=== PATIENT | female | born 1955 | race Caucasian/White ===

== ENCOUNTER 2018-01-14 18:33 | Inpatient (IN) | payer OTHER ==
[~2018-01-14] VITALS: Ht 162.6 cm; Wt 67.2 kg
[2018-01-14] MEDS ORDERED: NICARDIPINE 20MG/200ML PREMIX 200 ML ONE (19:03)
--- NOTE | 2018-01-14 19:03 | Diagnostic Imaging Report ---
EXAMINATION: Head CT HISTORY: Heart speech, right-sided weakness, evaluate for acute stroke. COMPARISON: None. TECHNIQUE: Multidetector axial images were obtained without contrast from the foramen magnum to the vertex . The images were reconstructed using brain and bone algorithms. Thin section brain images were reformatted into coronal and sagittal planes. Intravenous contrast: None. Image quality: Motion/streaking artifact limits the evaluation of the skull base and posterior cranial fossa. Dose modulation, iterative reconstruction, and/or weight based adjustment of the mA/kV was utilized to reduce the radiation dose to as low as reasonably achievable. FINDINGS: Parenchyma: 1. Mildly confluent periventricular white matter hypodensities, most likely nonspecific chronic microvascular ischemic changes. Age indeterminate likely chronic small lacunar infarct in the right frontal deep white matter. 2. No mass or hemorrhage. No CT evidence of acute territorial vascular insult. Extra-axial spaces:No abnormal density. No extra-axial fluid collections Brain volume: Normal for age. Ventricles: No hydrocephalus or displacement. Arteries: No density suggestive of thrombus. Dural sinuses: No abnormal density. Extra-axial spaces: No abnormal density. Foramen magnum: No mass, Chiari malformation, or basilar invagination. Sella: No obvious mass. Paranasal/mastoid sinuses: Imaged portions unremarkable. Skull/Scalp: No lytic or blastic lesions. No fractures. IMPRESSION: 1. No acute intracranial hemorrhage or cortical infarct. 2. Mild chronic microvascular ischemic changes. Signed by: Dr. Tiara Norris M.D. on 01/14/2018 7:00 PM
[2018-01-14 19:04] LABS: BASOPHILS # (AUTO) 0.1 (0.0-0.1); BASOPHILS % 0.5 % (0.0-1.0); EOSINOPHILS # (AUTO) 0.2 (0.0-0.4); EOSINOPHILS % 1.5 % (0.0-6.0); HEMATOCRIT 47.5 % (34.2-44.1); HEMOGLOBIN 16.7 g/dL (12.0-16.0); LYMPHOCYTES # (AUTO) 3.7 (1.0-3.2); LYMPHOCYTES % 35.1 % (18.0-39.1); MEAN CORPUSCULAR HGB CONC 35.2 g/dL (31-35); MEAN CORPUSCULAR VOLUME 85.3 fL (81-99); MONOCYTES # (AUTO) 0.7 (0.2-0.8); MONOCYTES % 6.1 % (4.4-11.3); NEUTROPHILS % 56.4 % (38.7-80.0); PLATELET COUNT 233 x10e3/uL (140-360); RED BLOOD COUNT 5.57 x10e6/uL (3.6-5.1); RED CELL DISTRIBUTION WIDTH 12.8 % (11.7-14.4)
[2018-01-14] MEDS: NICARDIPINE HCL SOLN 20 MG in SODIUM CHLORIDE 0.9% 250ML 200 ML IV PRN (19:05)
[2018-01-14 19:16] LABS: INR 0.83; PROTHROMBIN TIME 12.2 seconds (11.9-14.5)
[2018-01-14 19:17] LABS: PARTIAL THROMBOPLASTIN TIME 26.9 seconds (23.8-35.5)
[2018-01-14 19:26] LABS: ALANINE AMINOTRANSFERASE 13 IU/L (0-55); ALBUMIN 4.3 g/dL (3.5-5.0); ALBUMIN/GLOBULIN RATIO 1.3 (0.8-2.0); ALKALINE PHOSPHATASE 114 IU/L (40-150); ANION GAP 16.4 mmol/L (8-16); BLOOD UREA NITROGEN 9 mg/dL (7-26); BUN/CREATININE RATIO 12 (6-25); CALCIUM 10.2 mg/dL (8.4-10.2); CARBON DIOXIDE 23 mmol/L (22-29); CHLORIDE 100 mmol/L (98-107); CREATINE KINASE 59 IU/L (29-168); CREATININE, SERUM 0.77 mg/dL (0.57-1.11); EST GLOMERULAR FILTRATION RATE > 60 ML/MIN (60-); GLUCOSE 247 mg/dL (74-118); POTASSIUM 3.4 mmol/L (3.5-5.1); SODIUM 136 mmol/L (136-145)
[2018-01-14 20:06] LABS: BILIRUBIN,URINE NEGATIVE (NEGATIVE); CLARITY,URINE CLOUDY (CLEAR); COLOR,URINE YELLOW (YELLOW); KETONES,URINE NEGATIVE (NEGATIVE); LEUKOCYTE ESTERASE ,URINE NEGATIVE (NEGATIVE); NITRITE,URINE NEGATIVE (NEGATIVE); PROTEIN,URINE DIPSTICK TRACE (NEGATIVE); URINE UROBILINOGEN 0.2 mg/dL (0.2 - 1)
[2018-01-14] MEDS ORDERED: ASPIRIN 81 MG CHEW TAB PO STA (20:20)
--- NOTE | 2018-01-14 20:23 | Diagnostic Imaging Report ---
A single frontal view of the chest. HISTORY: Stroke COMPARISON: None available. DISCUSSION: Portable technique, limits sensitivity of the exam. Overlying monitoring leads. Tubes/Lines: None Lungs and pleura: The lungs appear well inflated. No evidence of a consolidative pneumonia or pulmonary alveolar edema. No definite pleural effusion or pneumothorax is identified. Heart and mediastinum: The cardiomediastinal silhouette appears unremarkable. Bones: No acute osseous lesion is identified, given this limited exam. IMPRESSION: No acute radiographic abnormality. Signed by: Dr. Jp Aguila D.O., M.M.M. on 01/14/2018 8:20 PM
[2018-01-14 20:26] LABS: RBC,URINE 0-5 /HPF (0-5)
[2018-01-14 20:27] LABS: BACTERIA,URINE MANY /HPF; EPITHELIAL CELLS,URINE MODERATE /LPF; HYALINE CASTS 0-1 (0-1)
[2018-01-14] MEDS ORDERED: ADVIL200 MG PO (20:51)
[2018-01-14] MEDS ORDERED: KCL 20MEQ/.9 SOD CHL 1,000 ML IV ONE (21:00)
[2018-01-14] MEDS ORDERED: ONDANSETRON HCL INJ 2 MG/ML VIAL IV PRN (21:00)
[2018-01-14] MEDS ORDERED: DEXTROSE 50% SYRINGE 50 ML IV PRN (21:00)
--- OUTSIDE RECORDS SUMMARY | 2018-01-14 21:03 | XMS REPORT ---
Author Author [facility] Address Unknown Phone Unavailable Care Team Providers Care Product Support Specialist Name Role Phone [place] MUNOZ Unavailable Unavailable Problems This patient has no known problems. Allergies, Adverse Reactions, Alerts This patient has no known allergies or adverse reactions. Medications This patient has no known medications. Results Test Description Test Time Test Comments Text Results Atomic Results Result Comments CHEST SINGLE (PORTABLE) 2018-01-14 20:20:00 [facility] [address] [place] [address] Patient Name: CYRUS WORKMAN MR #: [id number] : 1955 Age/Sex: 62/F Req #: [id number] Adm Physician: Ordered by: GENE BURDEN MD Report #: [id number] Location: ER Room/Bed: Procedure: [id number] DX/CHEST SINGLE (PORTABLE) Exam Date: 01/14/18 Exam Time: 2004 REPORT STATUS: Signed A single frontal view of the chest. HISTORY: Stroke COMPARISON: None available. DISCUSSION: Portable technique, limits sensitivity of the exam. Overlying monitoring leads. Tubes/Lines: None Lungs and pleura: The lungs appear well inflated. No evidence of a consolidative pneumonia or pulmonary alveolar edema. No definite pleural effusion or pneumothorax is identified. Heart and mediastinum: The cardiomediastinal silhouette appears unremarkable. Bones: No acute osseous lesion is identified, given this limited exam. IMPRESSION: No acute radiographic abnormality. Signed by: Dr. Sunshine Aguila D.O., M.M.M. on 01/14/2018 8:20 PM Dictated By: SUNSHINE AGUILA DO 19 Transcribed By: AJ on 01/14/182019 COPY TO: GENE BURDEN MD CT BRAIN WO 2018-01-14 18:57:00 [place] [address] Patient Name: CYRUS WORKMAN MR #: [id number] : 1955 Age/Sex: 62/F Req #: [id number] Adm Physician: Ordered by: VERN MUNOZ MD Report #: [id number] Location: ER Room/Bed: Procedure: [id number] CT/CT BRAIN WO Exam Date: 01/14/18 Exam Time: 1840 REPORT STATUS: Signed EXAMINATION: Head CT HISTORY: Heart speech, right-sided weakness, evaluate for acute stroke. COMPARISON: None. TECHNIQUE: Multidetector axial images were obtained without contrast from the foramen magnum to the vertex . The images were reconstructed using brain and bone algorithms. Thin section brain images were reformatted into coronal and sagittal planes. Intravenous contrast: None. Image quality: Motion/streaking artifact limits the evaluation of the skull base and posterior cranial fossa. Dose modulation, iterative reconstruction, and/or weight based adjustment of the mA/kV was utilized to reduce the radiation dose to as low as reasonably achievable. FINDINGS: Parenchyma: 1. Mildly confluent periventricular white matter hypodensities, most likely nonspecific chronic microvascular ischemic changes. Age indeterminate likely chronic small lacunar infarct in the right frontal deep white matter. 2. No mass or hemorrhage. No CT evidence of acute territorial vascular insult. Extra-axial spaces:No abnormal density. No extra-axial fluid collections Brain volume: Normal for age. Ventricles: No hydrocephalus or displacement. Arteries: No density suggestive of thrombus. Dural sinuses: No abnormal density. Extra-axial spaces: No abnormal density. Foramen magnum: No mass, Chiari malformation, or basilar invagination. Sella: No obvious mass. Paranasal/mastoid sinuses: Imaged portions unremarkable. Skull/Scalp: No lytic or blastic lesions. No fractures. IMPRESSION: 1. No acute intracranial hemorrhage or cortical infarct. 2. Mild chronic microvascular ischemic changes. Signed by: Dr. Demi Norris M.D. on 01/14/2018 7:00 PM Dictated By: DEMI NORRIS MD 99 Transcribed By: AJ on 01/14/181899 COPY TO: VERN MUNOZ MD
[2018-01-14] MEDS: INSULIN REGULAR, HUMAN 100 UNIT/1 ML 3ML VIAL SQ SCH (21:09)
[2018-01-14 23:19] VITALS: BP 178/103
[2018-01-14 23:34] VITALS: BP 176/98
[2018-01-14 23:45] VITALS: BP 170/99
[2018-01-15] VITALS (86 sets, daily range): BP systolic 146–201; BP diastolic 87–152
[2018-01-15] MEDS: NICARDIPINE HCL SOLN 20 MG in SODIUM CHLORIDE 0.9% 250ML 200 ML IV PRN (01:04)
[2018-01-15 04:28] LABS: BASOPHILS # (AUTO) 0.1 (0.0-0.1); BASOPHILS % 0.5 % (0.0-1.0); EOSINOPHILS # (AUTO) 0.2 (0.0-0.4); EOSINOPHILS % 1.6 % (0.0-6.0); HEMATOCRIT 42.9 % (34.2-44.1); HEMOGLOBIN 14.9 g/dL (12.0-16.0); LYMPHOCYTES # (AUTO) 2.8 (1.0-3.2); LYMPHOCYTES % 30.1 % (18.0-39.1); MEAN CORPUSCULAR HEMOGLOBIN 29.7 pg (28-32); MEAN CORPUSCULAR HGB CONC 34.7 g/dL (31-35); MEAN CORPUSCULAR VOLUME 85.5 fL (81-99); MONOCYTES # (AUTO) 0.6 (0.2-0.8); MONOCYTES % 6.9 % (4.4-11.3); NEUTROPHILS # (AUTO) 5.6 (2.1-6.9); NEUTROPHILS % 60.6 % (38.7-80.0); PLATELET COUNT 219 x10e3/uL (140-360); RED BLOOD COUNT 5.02 x10e6/uL (3.6-5.1); RED CELL DISTRIBUTION WIDTH 12.9 % (11.7-14.4)
[2018-01-15 04:51] LABS: CREATINE KINASE MB 0.8 ng/mL (0-5.0)
[2018-01-15 05:12] LABS: ALANINE AMINOTRANSFERASE 11 IU/L (0-55); ALBUMIN 3.5 g/dL (3.5-5.0); ALBUMIN/GLOBULIN RATIO 1.2 (0.8-2.0); ALKALINE PHOSPHATASE 93 IU/L (40-150); ANION GAP 14.3 mmol/L (8-16); BLOOD UREA NITROGEN 7 mg/dL (7-26); BUN/CREATININE RATIO 12 (6-25); CALCIUM 9.2 mg/dL (8.4-10.2); CARBON DIOXIDE 21 mmol/L (22-29); CHLORIDE 105 mmol/L (98-107); CHOL/HDL RATIO 4.8 (3.0-3.6); CHOLESTEROL 225 MD/DL (0-199); EST GLOMERULAR FILTRATION RATE > 60 ML/MIN (60-); GLUCOSE 206 mg/dL (74-118); HDL CHOLESTEROL 47 MG/DL (40-60); LDL CHOLESTEROL 148 MG/DL (60-130); POTASSIUM 3.3 mmol/L (3.5-5.1); SODIUM 137 mmol/L (136-145); TRIGLYCERIDES 150 MG/DL (0-149)
[2018-01-15] MEDS: INSULIN REGULAR, HUMAN 100 UNIT/1 ML 3ML VIAL SQ SCH ×4 (07:30→20:35)
[2018-01-15] MEDS: ASPIRIN 81 MG CHEW TAB PO SCH ×2 (09:37→11:59)
[2018-01-15] MEDS ORDERED: NICARDIPINE 20MG/200ML PREMIX 0 ML ONE (09:37)
--- NOTE | 2018-01-15 14:03 | Diagnostic Imaging Report ---
History: Facial droop, impaired speech Comparison studies: CT head 01/14/2018 Technique: Pre-contrast: Sagittal T2; axial T1-IR, MPGR, DWI, T2 FLAIR. Post-contrast: axial and coronal T1. 2-D cervical and 3-D intracranial [id number] MRA's . Intravenous contrast: None Findings: Brain: Scalp: No abnormal signal. No masses. Bone marrow: Normal in signal intensity. Brain sulci: Mildly prominent . Ventricles: Normal in size . No hydrocephalus. Parenchyma: Restricted diffusion is seen at the left trevino radiata and centrum semiovale ovale with associated FLAIR hyperintensity, without hemorrhage or midline shift. Scattered T2/flair hyperintensities of the periventricular and the white matter. Scattered T2/FLAIR hyperintensities at the joao. Focal scoliosis at the corpus callosum anterior body. No masses, hemorrhage, acute or chronic vascular insults. Suprasellar region: No abnormalities. Craniocervical junction: No abnormalities. Patent foramen magnum. No Chiari one malformation. Vessels: Normal flow-voids in the arteries and sinuses. Occupation of the right maxillary sinus. Cervical MRA: Carotid arteries: 60-70% stenosis stenosis at the right carotid bulb. Less than 30% stenosis of the left carotid bulb. Normal flow in the remaining carotid arteries Vertebral arteries: No flow abnormalities . Intracranial MRA: Internal carotid arteries: No flow abnormalities . Vertebrobasilar circulation: No flow abnormalities . Anatomical variants: Acom: Visualized. Pcoms: Visualized bilaterally. Vertebral arteries: Co-dominant. IMPRESSION: Brain: 1. Left trevino radiata and centrum semiovale acute white matter infarct 2. No intracranial hemorrhage. 3. Mild to moderate chronic microvascular ischemic changes of the white matter Cervical and intracranial MRAs: 1. Limited study by motion artifact. High-grade stenosis at the right carotid bulb, recommend CTA for further evaluation 2. Normal MRA of the [place] The above finding was reported and acknowledged by EVIE Vuong at 1:40 PM 01/15/2018 Signed by: DR Wilbert Lafleur M.D. on 01/15/2018 1:59 PM
--- NOTE | 2018-01-15 14:03 | Diagnostic Imaging Report ---
History: Facial droop, impaired speech Comparison studies: CT head 01/14/2018 Technique: Pre-contrast: Sagittal T2; axial T1-IR, MPGR, DWI, T2 FLAIR. Post-contrast: axial and coronal T1. 2-D cervical and 3-D intracranial [id number] MRA's . Intravenous contrast: None Findings: Brain: Scalp: No abnormal signal. No masses. Bone marrow: Normal in signal intensity. Brain sulci: Mildly prominent . Ventricles: Normal in size . No hydrocephalus. Parenchyma: Restricted diffusion is seen at the left trevino radiata and centrum semiovale ovale with associated FLAIR hyperintensity, without hemorrhage or midline shift. Scattered T2/flair hyperintensities of the periventricular and the white matter. Scattered T2/FLAIR hyperintensities at the joao. Focal scoliosis at the corpus callosum anterior body. No masses, hemorrhage, acute or chronic vascular insults. Suprasellar region: No abnormalities. Craniocervical junction: No abnormalities. Patent foramen magnum. No Chiari one malformation. Vessels: Normal flow-voids in the arteries and sinuses. Occupation of the right maxillary sinus. Cervical MRA: Carotid arteries: 60-70% stenosis stenosis at the right carotid bulb. Less than 30% stenosis of the left carotid bulb. Normal flow in the remaining carotid arteries Vertebral arteries: No flow abnormalities . Intracranial MRA: Internal carotid arteries: No flow abnormalities . Vertebrobasilar circulation: No flow abnormalities . Anatomical variants: Acom: Visualized. Pcoms: Visualized bilaterally. Vertebral arteries: Co-dominant. IMPRESSION: Brain: 1. Left trevino radiata and centrum semiovale acute white matter infarct 2. No intracranial hemorrhage. 3. Mild to moderate chronic microvascular ischemic changes of the white matter Cervical and intracranial MRAs: 1. Limited study by motion artifact. High-grade stenosis at the right carotid bulb, recommend CTA for further evaluation 2. Normal MRA of the [place] The above finding was reported and acknowledged by EVIE Vuong at 1:40 PM 01/15/2018 Signed by: DR Wilbert Lafleur M.D. on 01/15/2018 1:59 PM
--- NOTE | 2018-01-15 14:03 | Diagnostic Imaging Report ---
History: Facial droop, impaired speech Comparison studies: CT head 01/14/2018 Technique: Pre-contrast: Sagittal T2; axial T1-IR, MPGR, DWI, T2 FLAIR. Post-contrast: axial and coronal T1. 2-D cervical and 3-D intracranial [id number] MRA's . Intravenous contrast: None Findings: Brain: Scalp: No abnormal signal. No masses. Bone marrow: Normal in signal intensity. Brain sulci: Mildly prominent . Ventricles: Normal in size . No hydrocephalus. Parenchyma: Restricted diffusion is seen at the left trevino radiata and centrum semiovale ovale with associated FLAIR hyperintensity, without hemorrhage or midline shift. Scattered T2/flair hyperintensities of the periventricular and the white matter. Scattered T2/FLAIR hyperintensities at the joao. Focal scoliosis at the corpus callosum anterior body. No masses, hemorrhage, acute or chronic vascular insults. Suprasellar region: No abnormalities. Craniocervical junction: No abnormalities. Patent foramen magnum. No Chiari one malformation. Vessels: Normal flow-voids in the arteries and sinuses. Occupation of the right maxillary sinus. Cervical MRA: Carotid arteries: 60-70% stenosis stenosis at the right carotid bulb. Less than 30% stenosis of the left carotid bulb. Normal flow in the remaining carotid arteries Vertebral arteries: No flow abnormalities . Intracranial MRA: Internal carotid arteries: No flow abnormalities . Vertebrobasilar circulation: No flow abnormalities . Anatomical variants: Acom: Visualized. Pcoms: Visualized bilaterally. Vertebral arteries: Co-dominant. IMPRESSION: Brain: 1. Left trevino radiata and centrum semiovale acute white matter infarct 2. No intracranial hemorrhage. 3. Mild to moderate chronic microvascular ischemic changes of the white matter Cervical and intracranial MRAs: 1. Limited study by motion artifact. High-grade stenosis at the right carotid bulb, recommend CTA for further evaluation 2. Normal MRA of the [place] The above finding was reported and acknowledged by EVIE Vuong at 1:40 PM 01/15/2018 Signed by: DR Wilbert Lafleur M.D. on 01/15/2018 1:59 PM
[2018-01-15 14:06] LABS: CREATINE KINASE 44 IU/L (29-168)
[2018-01-15] MEDS ORDERED: POTASSIUM CHLORIDE 20 MEQ TAB CR PO STA (15:12)
--- NOTE | 2018-01-15 16:29 | History and Physical ---
A 62-year-old female who has a past medical history positive for hypertension. Was not taking any medication in the past, history of smoking. Patient came to the emergency room after she started having symptoms of slurred speech and right arm weakness starting at 10 a.m. in the morning prior to coming to the ER. She came to the emergency room and it was approximately at 7:01 p.m., so 9 hours after symptoms started. She was not in the window for tPA. Her blood pressure was extremely high in the 240/120. The patient was started on a Cardene drip. Dr. Pedroza was consulted for neurology point of view. CT of the head showed no significant abnormalities, MRI of the head and MRA of the head done later on showed evidence of left white matter CVA, thrombotic in nature. Also, some evidence of carotid stenosis. Also, the MRA of the [place] is completely normal. REVIEW OF SYSTEMS CARDIOVASCULAR: No chest pain or palpitation. RESPIRATORY: No shortness of breath. No cough. GASTROINTESTINAL: No nausea. No vomiting. No diarrhea. GENITOURINARY: No frequency or dysuria. ALLERGIES: NOT ALLERGIC TO ANYTHING. SOCIAL HISTORY: She is a smoker. She drinks occasionally. PAST MEDICAL HISTORY: Positive for hypertension, but she was not taking any blood pressure medication for at least 2 years. PHYSICAL EXAMINATION VITAL SIGNS: Blood pressure 170/101, temperature 98, heart rate 93 per minute, respiratory rate 14 per minute, oxygen saturation is 98%. HEART: Shows regular rhythm. Normal S1 and S2 sounds. LUNGS: Clear bilaterally. ABDOMEN: Soft. EXTREMITIES: Show no evidence of cyanosis or trauma. NEUROLOGIC: She is alert and oriented times 3. Cranial nerves: She has right facial droop. She has intact sensation on the right and left side of the face. Motor strength is 5/5 on left upper and left lower extremity, right upper and lower extremities. Sensory is intact all over. On the BMP, sodium 137, potassium 3.3, chloride 105, CO2 21, BUN 7, creatinine 0.6, glucose 206. On the CBC, white blood count 9.26, hemoglobin 14.9, hematocrit 42.9, and platelet count 219,000. PT 12.2. INR 0.83. PTT 26.9. AST 11, ALT 11, total bilirubin 0.4, 93. On the EKG, it showed normal sinus rhythm. No evidence of any ST-segment elevation or depression. Echocardiogram was done also and showed an ejection fraction of 55% to 60%. EKG showed sinus tachycardia, left atrial deviation. No evidence of any significant abnormalities. On the reports of the MRI of the brain, it showed left trevino radiata and central semi-ovale acute white matter infarct. No intracranial hemorrhage, mild to moderate chronic microvascular ischemic changes of the white matter. On the cranial and intracranial MRAs showed limited study by motion artifact, high grade stenosis on the right carotid bulb. Recommend CT angiogram for further evaluation. Also, normal MRA of the [place]. The last blood pressure we have is blood pressure is 170/101, heart rate 93 per minute, respiratory rate is 14 per minute, oxygen saturation 94%. FINAL IMPRESSION 1. Left cerebrovascular accident with expressive aphasia. 2. Hypertensive emergency. 3. Hypokalemia. 4. History of tobacco abuse. 5. Hypercholesterolemia. 6. Hypertriglyceridemia. PLAN OF TREATMENT: We are going to continue the nicardipine drip to keep the blood pressure around 170/100. Continue aspirin 81 mg daily. Lipitor 40 mg at bedtime. Zofran 4 mg IV q.4 h. as needed for nausea and vomiting. Continue monitoring blood sugar a.c. and at night. We are going to also order a hemoglobin A1c since the blood sugar was elevated when she came to the hospital. We are going to also replace the potassium with 40 mEq of potassium p.o. We are going to recheck potassium and magnesium level tomorrow. Also, physical, occupational and speech therapy has been consulted on the case. The patient will remain in the ICU. Dr. Pedroza, neurology, has been consulted on the case also. Time spent around 45 minutes. Job#: [id number]
[2018-01-15] MEDS: NICARDIPINE IV PRN (19:46)
[2018-01-15] MEDS: ISO OSM IV PRN (19:46)
[2018-01-15] MEDS: SALINE IV PRN (19:46)
[2018-01-15] MEDS ORDERED: SODIUM CHLORIDE 0.9% 100 ML 100 ML ONE (20:32)
[2018-01-15] MEDS ORDERED: IOPAMIDOL 370 MG/ML 200 ML INFUS..BTL INJ ONE (20:32)
[2018-01-15] MEDS: ATORVASTATIN 40 MG TAB PO SCH (20:44)
--- NOTE | 2018-01-15 20:56 | Consultation ---
DATE OF CONSULTATION: January 15, 2018 HISTORY OF PRESENT ILLNESS: Ms. Everett is a 62-year-old right-hand dominant woman with past medical history significant for hypertension (not compliant with treatment) admitted to [facility] on January 14, 2018 with symptoms suspicious for a stroke. At approximately 1430, on the afternoon of admission, the patient was noted by her grandson to have slurred speech. According to Ms. Everett, slurred speech was the only symptom present at that time. After taking her grandson home from school, the patient returned to her home and took a nap until approximately 1630 on the afternoon of admission. When she awoke from her nap, the patient had not only dysarthria, but mild expressive aphasia, right facial droop, and weakness affecting the right arm. Ms. Everett does not report a visual field cut or other disturbance, numbness, impairment of gait or balance, dizziness or confusion. Despite the presence of the aforementioned symptoms, Ms. Everett did not seek immediate medical attention. However, when her arrived home and was informed of her symptoms, he brought her to the emergency center at [facility] for further evaluation. Upon arrival in the emergency center, the patient was afebrile with a blood pressure of 264/144 mmHg and a pulse of 99 beats per minute. The patient's neurological examination was significant for dysarthria, right facial droop, and weakness of the right arm with pronator drift. A NIH Stroke Scale score of 4 was given. While in the emergency center, Ms. Everett underwent a CT of the brain without contrast, which did not show evidence of recent large territorial ischemia or hemorrhage. Ms. Everett was admitted to [facility] for further evaluation and treatment. Due to her high blood pressures, the patient required admission to the intensive care unit on a continuous infusion of nicardipine. Ms. Everett does not report experiencing similar symptoms previously. REVIEW OF SYSTEMS: Dysarthria, facial droop, weakness of the right arm. Otherwise, a 12 point review of systems is negative. PAST MEDICAL HISTORY: Hypertension (not compliant with treatment). PAST SURGICAL HISTORY: Right knee replacement, section x3, partial hysterectomy, and appendectomy. PAST HOSPITALIZATIONS: Surgeries/procedures as listed. FAMILY HISTORY: The patient's paternal and maternal grandparents are . Their medical histories are unknown. The patient's father is alive. He has a prior history of pancreatic cancer, status post resection and multiple occurrences of skin cancer. The patient's mother is . She from renal failure when the patient was 2 years old. Ms. Everett has 2 half-sisters, both of whom are alive. The elder was recently diagnosed with breast cancer stage 0. The younger has a history of melanoma. The patient has 3 children, 2 sons and 1 daughter, all of whom are alive and healthy. SOCIAL HISTORY: Ms. Everett is . She is retired. The patient does report a prior history of tobacco use, but quit smoking cigarettes 10 years ago. Ms. Everett reports drinking an occasional caleb. She does not report current or prior recreational drug use. HOME MEDICATIONS: None. ALLERGIES: NO KNOWN DRUG ALLERGIES. NO KNOWN FOOD ALLERGIES. NO KNOWN ALLERGIES TO LATEX. MS. EVERETT DOES REPORT OF AN ALLERGIC REACTION TO SOME ADHESIVE. THERE IS NO KNOWN ALLERGY TO IODINE OR OTHER CONTRAST MATERIALS. PHYSICAL EXAMINATION VITAL SIGNS: Height 64 inches, weight 144 pounds, BMI 24.7 kg per meter squared. Blood pressure 165/102 mmHg. Pulse 96 beats per minute. Respiratory rate 14 breaths per minute, oxygen saturation 95% on room air. GENERAL: The patient is awake and alert. Does not appear distressed. . HEENT: Normocephalic, atraumatic. Pupils are equal, round, and reactive to light. Moist mucous membranes. NECK: Supple. No appreciable thyromegaly. No appreciable carotid bruits. CARDIOVASCULAR: S1 and S2 mildly tachycardic. There is a positive moderate grade systolic ejection murmur best heard at the left upper sternal border. RESPIRATORY: Clear to auscultation bilaterally. No wheezes, rhonchi or rales. EXTREMITIES: Skin is warm and dry. No clubbing, cyanosis or edema. The posterior tibial and dorsalis pedis pulses are 2+ and symmetric. SKIN: No rashes or lesions. NEUROLOGIC Memory/Attention: The patient is awake and alert. Oriented to person, place, time, and to situation. Cranial Nerves: Cranial nerve I--not tested. Cranial nerve II, III, IV, and --Pupils are equal and round, react briskly to light (from 4 mm to 2 mm). Extraocular movements intact. No nystagmus. Cranial nerve V--sensation to light touch and pinprick is intact in the bilateral V1 through V3 distributions. Strength of the temporalis and masseter muscles is within normal limits. Cranial nerve VII--the face is symmetric as on the right with mild to moderate right central facial weakness. Cranial nerve VIII--hearing is intact to finger rub bilaterally. Cranial nerve 9, 10 the soft palate elevates equally and symmetrically. Cranial nerve XI--normal strength of the bilateral sternocleidomastoid and trapezius muscles. Cranial nerve XII--the tongue protrudes midline and moves symmetrically from side to side. Strength bulk is normal. Strength is 5/5 in the bilateral deltoids, biceps, triceps, wrist flexors and extensors, finger flexors and extensors, intrinsic hand muscles, hip flexors, knee flexors and extensors, ankle dorsiflexion and plantar flexion, and intrinsic foot muscles. Tone is normal. DTRs: Deep tendon reflexes are 2+ and symmetric at the triceps, biceps, and brachioradialis. The left patella reflex is 2+. The right patellar reflex and the bilateral Achilles reflexes are absent. Plantar responses are flexor bilaterally. Sensation: Sensation is intact to light touch and pinprick in both arms and both legs. Cerebellar: Edxami-irrl-boyiki and heel-ring movements are intact without dysmetria or other impairment. Gait: Gait deferred. Speech: Spontaneous speech is moderately dysarthric without appreciable aphasia. Repetition is intact. Involuntary Movements: None. Pronator Drift: Subtle on the right arm. Laboratory data: A comprehensive metabolic panel is significant for potassium of 3.3, carbon dioxide of 21, serum glucose of 206, total protein of 6.4. Cardiac enzymes are negative x3. Total cholesterol 225, triglycerides 150, LDL cholesterol 148, HDL cholesterol 47. Hemoglobin A1c 9.3. The CBC with differential and platelets is unremarkable. PT, PTT, and INR are within normal limits. A urinalysis reveals cloudy urine with trace protein, 3+ glucose, trace blood, and many bacteria with moderate urine epithelials cells. DIAGNOSTIC STUDIES 1. Electrocardiogram 01/14/2018: Sinus tachycardia at 105 beats per minute. Left axis deviation. 2. CT of the brain without contrast 01/15/2008: On my review, there is no evidence of recent large territorial ischemia, hemorrhage, mass or mass effect. A remote lacunar infarct is seen in the right frontal deep white matter. There are findings compatible with mild to moderate chronic small vessel ischemic disease. 3. Chest x-ray 01/14/2018: No acute radiographic abnormality. 4. MRI of the brain without contrast 01/15/2018: There is an acute ischemic infarct in the left trevino radiata, and centrum semiovale. Once again, a remote lacunar infarct is seen in the deep white matter on the right. Cerebral volumes are appropriate for age. There are scattered, nonspecific T2/FLAIR hyperintense foci in the supratentorial and infratentorial deep white matter compatible with moderate chronic small vessel ischemic disease. 5. MRA of the brain and neck 01/15/2018: The MRA of the [place] is unremarkable. Vascular imaging of the neck is limited by motion. However, there is possible high-grade stenosis at the right carotid bulb. Further evaluation with the CTA of the neck is recommended. 6. Echocardiogram 01/15/2018: Ejection fraction 55 to 60%. Concentric left ventricular hypertrophy. Trace tricuspid regurgitation. ASSESSMENT AND PLAN: Ms. Everett is a 62-year-old right-hand dominant woman with multiple recently diagnosed cardiovascular risk factors, admitted to [facility] with an acute lacunar stroke in the left middle cerebral artery distribution. The patient's neurological examination is significant for moderate dysarthria, right facial droop with mild to moderate right central facial weakness, and subtle pronator drift of the right arm. Patient's laboratory data and other diagnostic studies have been reviewed and are documented above. RECOMMENDATIONS 1. Review of the MRA of the neck revealed possible high-grade stenosis at the right carotid bulb. A CTA of the neck and has been ordered for further evaluation and is pending. 2. Treatment with aspirin 325 mg by mouth daily for stroke prophylaxis will be prescribed. 3. Pending the results of the CTA of the neck, systolic blood pressure should be in the 170s to 180s mmHg with diastolic blood pressures in the 80s to 100s mmHg. Titrate the continuous nicardipine drip to the stated blood pressure goals. 4. The patient's goal total cholesterol is less than 200 with a LDL of less than 70. Treatment with atorvastatin will be continued, but the dose will be increased to 80 mg by mouth at bedtime daily. 5. Goal hemoglobin A1c is less than 7.0. Ms. Everett' hemoglobin A1c is 9.3. Tight glycemic control is recommended while the patient is hospitalized. Continue with fingerstick blood glucoses, and sliding scale insulin for correction as per protocol. Defer further treatment to the primary service. 6. Speech therapy has been consulted and is following the patient. Once Ms. Everett' blood pressures are stabilized, a physical therapy consultation will be requested. 7. GI prophylaxis with Pepcid 20 mg by mouth twice daily with meals. DVT prophylaxis with Lovenox 40 mg subcutaneously daily. 8. Defer treatment of the remaining medical comorbidities to the primary service. Thank you for this consultation. I will continue to follow the patient while she remains in the hospital. TIME SPENT: 70 minutes. Job#: [id number] CQ ANAMARIA
[2018-01-15] MEDS ORDERED: ATORVASTATIN 40 MG TAB PO SCH (21:00)
[2018-01-15] MEDS ORDERED: ATORVASTATIN 20 MG TAB PO SCH (21:00)
--- NOTE | 2018-01-15 21:49 | Diagnostic Imaging Report ---
EXAMINATION: CT angio of the neck with contrast. HISTORY:CVA, possible right carotid stenosis. Comparison studies:CT brain from 01/14/2018, MRI brain and MRA head and neck from 01/15/2018. Technique: Multidetector helical axial images were acquired through the neckduring infusion of iodinated contrast material. Images were reviewed in multiplanar and 3-dimensional format. Dose modulation, iterative reconstruction, and/or weight based adjustment of the mA/kV was utilized to reduce the radiation dose to as low as reasonably achievable. Intravenous contrast: 100 cc of Isovue 370. Findings: If carotid bulb stenosis is present, stenosis is measured with respect to the distal extracranial internal carotid artery. Aortic arch and major vessels: Patent. Common carotid arteries: Patent Cervical carotid bifurcations: Right: Focal hard atherosclerotic plaque without significant stenosis. Left :Mixed atherosclerotic plaque without significant stenosis. Internal carotid arteries: Right: Mixed atherosclerotic plaque at the origin of right internal carotid artery results in approximately 60% vascular stenosis. Left: Mixed atherosclerotic plaque at the origin of left internal carotid artery results in approximately 30% vascular stenosis. Vertebral arteries: Patent. Left dominant. Cervical spine: Reversal of normal cervical lordosis. C2-C3: Mild right foraminal stenosis due to facet and uncovertebral arthrosis. C3-C4: Severe left foraminal stenosis due to facet and uncovertebral arthrosis. C4-C5: Mild left foraminal stenosis due to facet and uncovertebral arthrosis. C5-C6: Moderate degenerative disc disease. Posterior disc osteophyte complex results in mild canal stenosis. Mild right foraminal stenosis due to facet and uncovertebral arthrosis. C6-C7: Severe right and mild left foraminal stenosis due to facet and uncovertebral arthrosis. C7-T1: Mild right foraminal stenosis due to facet and uncovertebral arthrosis. Incidental finding: Multifocal dental caries and endodontal disease, the activity of which is to be determined clinically. Near complete opacification of right maxillary sinus, possibly represents odontogenic sinusitis. Heterogeneously enlarged thyroid gland (left lobe more than the right) with the large heterogeneous nodule that approximately measures 3.7 x 2.2 x 2.1 cm in the left lobe of the thyroid gland which extends inferiorly into the superior mediastinum. Smaller calcified nodule in right lobe of thyroid gland. IMPRESSION: 1. Mixed atherosclerotic plaque at the origin of right internal carotid artery results in approximately 60% vascular stenosis and 30% vascular stenosis at the origin of left internal carotid artery. 2. Nonstenotic atherosclerotic plaque in bilateral carotid bulb. 3. Heterogeneously enlarged thyroid gland with largest nodule in left lobe, consider further evaluation with dedicated nonemergent thyroid ultrasonogram if previous workup has not been done. Signed by: Dr. Lynda Oliva M.D. on 01/15/2018 9:46 PM
[2018-01-16] VITALS (86 sets, daily range): BP systolic 137–213; BP diastolic 76–160
[2018-01-16 04:32] LABS: BASOPHILS # (AUTO) 0.1 (0.0-0.1); BASOPHILS % 0.6 % (0.0-1.0); EOSINOPHILS # (AUTO) 0.2 (0.0-0.4); EOSINOPHILS % 2.1 % (0.0-6.0); HEMATOCRIT 47.9 % (34.2-44.1); HEMOGLOBIN 16.4 g/dL (12.0-16.0); LYMPHOCYTES # (AUTO) 3.1 (1.0-3.2); LYMPHOCYTES % 30.3 % (18.0-39.1); MEAN CORPUSCULAR HEMOGLOBIN 29.6 pg (28-32); MEAN CORPUSCULAR HGB CONC 34.2 g/dL (31-35); MEAN CORPUSCULAR VOLUME 86.5 fL (81-99); MONOCYTES # (AUTO) 0.8 (0.2-0.8); MONOCYTES % 8.3 % (4.4-11.3); NEUTROPHILS # (AUTO) 5.9 (2.1-6.9); NEUTROPHILS % 58.3 % (38.7-80.0); PLATELET COUNT 207 x10e3/uL (140-360); RED BLOOD COUNT 5.54 x10e6/uL (3.6-5.1); RED CELL DISTRIBUTION WIDTH 12.8 % (11.7-14.4)
[2018-01-16 04:52] LABS: ANION GAP 15.7 mmol/L (8-16); BLOOD UREA NITROGEN 10 mg/dL (7-26); BUN/CREATININE RATIO 15 (6-25); CALCIUM 9.9 mg/dL (8.4-10.2); CARBON DIOXIDE 21 mmol/L (22-29); CHLORIDE 106 mmol/L (98-107); CREATININE, SERUM 0.66 mg/dL (0.57-1.11); EST GLOMERULAR FILTRATION RATE > 60 ML/MIN (60-); GLUCOSE 188 mg/dL (74-118); POTASSIUM 3.7 mmol/L (3.5-5.1); SODIUM 139 mmol/L (136-145)
[2018-01-16] MEDS: FAMOTIDINE 20 MG TAB PO SCH ×2 (07:30→16:52)
[2018-01-16] MEDS: INSULIN REGULAR, HUMAN 100 UNIT/1 ML 3ML VIAL SQ SCH ×4 (07:42→21:13)
[2018-01-16] MEDS: ASPIRIN 325 MG TAB PO SCH (09:00)
[2018-01-16] MEDS ORDERED: ASPIRIN 81 MG CHEW TAB PO SCH (09:00)
[2018-01-16] MEDS: AMLODIPINE BESYLATE 10 MG TAB PO SCH (14:25)
--- NOTE | 2018-01-16 15:55 | Progress Note ---
DATE: INTERNAL MEDICINE PROGRESS NOTE SUBJECTIVE: Patient is doing well now. Seems less lethargic than before. PHYSICAL EXAMINATION VITAL SIGNS: Blood pressure 170/95. Temperature 98.2. Heart rate 85 per minute. Respiratory rate 20 per minute. Oxygen saturation 100%. HEART: Regular rhythm. Normal S1, S2 sounds. LUNGS: Clear bilaterally. ABDOMEN: Soft. EXTREMITIES: No evidence of cyanosis, edema or trauma. NEUROLOGIC: She has left facial deviation. Motor strength is 5/5 on right upper and right lower and left upper and left lower extremities. BLOOD WORK: We have BMP with sodium 139, potassium 3.7, chloride 106, CO2 21, BUN 10, creatinine 0.66. Glucose 188. On the CBC, white blood count 10.0, hemoglobin 16.4, hematocrit 47.9, platelet count 207,000. PT 12.2, INR 0.83, PTT 26.9. AST 11, ALT 11, total bilirubin 0.4, alkaline phosphatase 93. Hemoglobin A1c is elevated, also. CT angiogram of the carotid arteries showed 60% stenosis in the right internal carotid artery and 30% stenosis of the left internal carotid artery and a possible nodule in the left thyroid lobe. FINAL IMPRESSION 1. Left intercapsular cerebrovascular accident with mild dysarthria and no significant motor deficit. 2. Uncontrolled hypertension. 3. Uncontrolled diabetes mellitus, type 2. PLAN OF TREATMENT: Continue nicardipine drip. Continue monitoring blood sugar a.c. and at bedtime. Continue aspirin 325 mg daily. Continue Lipitor 80 mg daily, glimepiride 2 mg twice a day, Lovenox 40 mg subcutaneous once a day, lisinopril 10 mg daily, Pepcid 20 mg twice a day, Zofran 4 mg q.4 h. as needed. Continue physical, occupational and speech therapy. Discussed with the family at bedside. Discussed with Dr. Pedroza. Discussed with nurse at bedside. Consultation report reviewed. Labs reviewed. Time spent approximately 55 minutes. Job#: [id number]
[2018-01-16] MEDS: NICARDIPINE IV PRN (16:00)
[2018-01-16] MEDS: ISO OSM IV PRN (16:00)
[2018-01-16] MEDS: SALINE IV PRN (16:00)
[2018-01-16] MEDS: GLIMEPIRIDE 2 MG TAB PO SCH (16:54)
[2018-01-16] MEDS: ENOXAPARIN SOD INJ 40 MG/0.4 ML SYR SC SCH (16:55)
[2018-01-16] MEDS: LISINOPRIL 10 MG TAB PO SCH (21:12)
[2018-01-16] MEDS: ATORVASTATIN 40 MG TAB PO SCH (21:12)
[2018-01-17] VITALS (50 sets, daily range): BP systolic 118–171; BP diastolic 71–131
[2018-01-17] MEDS: SALINE IV PRN (00:33)
[2018-01-17] MEDS: NICARDIPINE IV PRN (00:33)
[2018-01-17] MEDS: ISO OSM IV PRN (00:33)
[2018-01-17] MEDS: INSULIN REGULAR, HUMAN 100 UNIT/1 ML 3ML VIAL SQ SCH ×4 (07:30→21:17)
[2018-01-17] MEDS: GLIMEPIRIDE 2 MG TAB PO SCH (08:00)
[2018-01-17] MEDS: FAMOTIDINE 20 MG TAB PO SCH ×2 (08:00→16:28)
[2018-01-17] MEDS: AMLODIPINE BESYLATE 10 MG TAB PO SCH (09:00)
[2018-01-17] MEDS: ASPIRIN 325 MG TAB PO SCH (09:00)
[2018-01-17 14:15] LABS: BASOPHILS % 0.4 % (0.0-1.0); EOSINOPHILS # (AUTO) 0.1 (0.0-0.4); EOSINOPHILS % 1.5 % (0.0-6.0); HEMATOCRIT 43.6 % (34.2-44.1); HEMOGLOBIN 15.1 g/dL (12.0-16.0); LYMPHOCYTES # (AUTO) 3.1 (1.0-3.2); LYMPHOCYTES % 32.1 % (18.0-39.1); MEAN CORPUSCULAR HEMOGLOBIN 29.5 pg (28-32); MEAN CORPUSCULAR HGB CONC 34.6 g/dL (31-35); MEAN CORPUSCULAR VOLUME 85.3 fL (81-99); MONOCYTES # (AUTO) 0.6 (0.2-0.8); MONOCYTES % 6.4 % (4.4-11.3); NEUTROPHILS # (AUTO) 5.7 (2.1-6.9); NEUTROPHILS % 59.3 % (38.7-80.0); PLATELET COUNT 231 x10e3/uL (140-360); RED BLOOD COUNT 5.11 x10e6/uL (3.6-5.1); RED CELL DISTRIBUTION WIDTH 12.6 % (11.7-14.4)
[2018-01-17 14:33] LABS: ANION GAP 15.5 mmol/L (8-16); BLOOD UREA NITROGEN 23 mg/dL (7-26); BUN/CREATININE RATIO 30 (6-25); CALCIUM 9.8 mg/dL (8.4-10.2); CARBON DIOXIDE 24 mmol/L (22-29); CHLORIDE 102 mmol/L (98-107); CREATININE, SERUM 0.76 mg/dL (0.57-1.11); EST GLOMERULAR FILTRATION RATE > 60 ML/MIN (60-); GLUCOSE 200 mg/dL (74-118); POTASSIUM 3.5 mmol/L (3.5-5.1); SODIUM 138 mmol/L (136-145)
[2018-01-17] MEDS ORDERED: HYDROCODONE/APAP 5MG-325MG TAB ONE (16:15)
[2018-01-17] MEDS: METFORMIN HCL 500 MG TAB PO SCH (16:24)
[2018-01-17] MEDS: ENOXAPARIN SOD INJ 40 MG/0.4 ML SYR SC SCH (16:28)
[2018-01-17] MEDS: HYDROCODONE/APAP 5MG-325MG TAB PO PRN ×2 (16:30→22:49)
[2018-01-17] MEDS: ATORVASTATIN 40 MG TAB PO SCH (21:03)
[2018-01-17] MEDS: LISINOPRIL 10 MG TAB PO SCH (21:04)
[2018-01-17] MEDS: INSULIN DETEMIR 100 UNIT/ML PEN SQ SCH (21:17)
[2018-01-18] VITALS: BP 128/71
[2018-01-18 04:00] VITALS: BP 147/77
[2018-01-18 06:46] LABS: BASOPHILS # (AUTO) 0.1 (0.0-0.1); BASOPHILS % 0.5 % (0.0-1.0); EOSINOPHILS # (AUTO) 0.2 (0.0-0.4); EOSINOPHILS % 1.7 % (0.0-6.0); HEMATOCRIT 43.1 % (34.2-44.1); HEMOGLOBIN 15.1 g/dL (12.0-16.0); LYMPHOCYTES # (AUTO) 3.3 (1.0-3.2); LYMPHOCYTES % 33.4 % (18.0-39.1); MEAN CORPUSCULAR HEMOGLOBIN 30.3 pg (28-32); MEAN CORPUSCULAR VOLUME 86.4 fL (81-99); MONOCYTES # (AUTO) 0.8 (0.2-0.8); MONOCYTES % 8.2 % (4.4-11.3); NEUTROPHILS # (AUTO) 5.5 (2.1-6.9); NEUTROPHILS % 55.9 % (38.7-80.0); PLATELET COUNT 223 x10e3/uL (140-360); RED BLOOD COUNT 4.99 x10e6/uL (3.6-5.1); RED CELL DISTRIBUTION WIDTH 12.7 % (11.7-14.4)
[2018-01-18 07:03] LABS: ANION GAP 13.6 mmol/L (8-16); BLOOD UREA NITROGEN 25 mg/dL (7-26); BUN/CREATININE RATIO 36 (6-25); CALCIUM 9.6 mg/dL (8.4-10.2); CARBON DIOXIDE 26 mmol/L (22-29); CHLORIDE 102 mmol/L (98-107); CREATININE, SERUM 0.69 mg/dL (0.57-1.11); EST GLOMERULAR FILTRATION RATE > 60 ML/MIN (60-); GLUCOSE 114 mg/dL (74-118); POTASSIUM 3.6 mmol/L (3.5-5.1); SODIUM 138 mmol/L (136-145)
[2018-01-18] MEDS: METFORMIN HCL 500 MG TAB PO SCH (07:30)
[2018-01-18] MEDS: FAMOTIDINE 20 MG TAB PO SCH ×2 (07:30→16:30)
[2018-01-18 08:00] VITALS: BP 142/81
[2018-01-18] MEDS: INSULIN REGULAR, HUMAN 100 UNIT/1 ML 3ML VIAL SQ SCH ×4 (08:42→21:15)
[2018-01-18] MEDS: ASPIRIN 325 MG TAB PO SCH (08:42)
[2018-01-18] MEDS: AMLODIPINE BESYLATE 10 MG TAB PO SCH (08:43)
[2018-01-18 12:00] VITALS: BP 155/83
[2018-01-18 16:00] VITALS: BP 159/84
[2018-01-18] MEDS: ENOXAPARIN SOD INJ 40 MG/0.4 ML SYR SC SCH (17:00)
[2018-01-18 20:00] VITALS: BP 156/83
[2018-01-18] MEDS: ATORVASTATIN 40 MG TAB PO SCH (21:02)
[2018-01-18] MEDS: LISINOPRIL 10 MG TAB PO SCH (21:02)
[2018-01-18] MEDS: INSULIN DETEMIR 100 UNIT/ML PEN SQ SCH (21:15)
[2018-01-19] VITALS (8 sets, daily range): BP systolic 128–144; BP diastolic 73–90
[2018-01-19 05:15] LABS: BASOPHILS % 0.4 % (0.0-1.0); EOSINOPHILS # (AUTO) 0.2 (0.0-0.4); EOSINOPHILS % 1.9 % (0.0-6.0); HEMATOCRIT 44.4 % (34.2-44.1); HEMOGLOBIN 15.2 g/dL (12.0-16.0); LYMPHOCYTES # (AUTO) 2.7 (1.0-3.2); LYMPHOCYTES % 28.4 % (18.0-39.1); MEAN CORPUSCULAR HEMOGLOBIN 29.5 pg (28-32); MEAN CORPUSCULAR HGB CONC 34.2 g/dL (31-35); MEAN CORPUSCULAR VOLUME 86.2 fL (81-99); MONOCYTES # (AUTO) 0.8 (0.2-0.8); MONOCYTES % 8.5 % (4.4-11.3); NEUTROPHILS # (AUTO) 5.8 (2.1-6.9); NEUTROPHILS % 60.5 % (38.7-80.0); PLATELET COUNT 222 x10e3/uL (140-360); RED BLOOD COUNT 5.15 x10e6/uL (3.6-5.1); RED CELL DISTRIBUTION WIDTH 12.7 % (11.7-14.4)
[2018-01-19 05:39] LABS: ALANINE AMINOTRANSFERASE 10 IU/L (0-55); ALBUMIN 3.4 g/dL (3.5-5.0); ALBUMIN/GLOBULIN RATIO 1.1 (0.8-2.0); ALKALINE PHOSPHATASE 90 IU/L (40-150); ANION GAP 11.4 mmol/L (8-16); BLOOD UREA NITROGEN 20 mg/dL (7-26); BUN/CREATININE RATIO 32 (6-25); CALCIUM 9.7 mg/dL (8.4-10.2); CARBON DIOXIDE 27 mmol/L (22-29); CHLORIDE 105 mmol/L (98-107); CREATININE, SERUM 0.62 mg/dL (0.57-1.11); EST GLOMERULAR FILTRATION RATE > 60 ML/MIN (60-); GLUCOSE 102 mg/dL (74-118); POTASSIUM 3.4 mmol/L (3.5-5.1); SODIUM 140 mmol/L (136-145)
[2018-01-19] MEDS: FAMOTIDINE 20 MG TAB PO SCH ×2 (08:19→17:11)
[2018-01-19] MEDS: METFORMIN HCL 500 MG TAB PO SCH (08:19)
[2018-01-19] MEDS: ASPIRIN 325 MG TAB PO SCH (08:20)
[2018-01-19] MEDS: AMLODIPINE BESYLATE 10 MG TAB PO SCH (08:20)
[2018-01-19] MEDS: INSULIN REGULAR, HUMAN 100 UNIT/1 ML 3ML VIAL SQ SCH ×3 (08:32→17:14)
[2018-01-19] MEDS: ENOXAPARIN SOD INJ 40 MG/0.4 ML SYR SC SCH (17:11)
[2018-01-19] MEDS ORDERED: POTASSIUM CHLORIDE 20 MEQ TAB CR PO ONE (19:15)
--- NOTE | 2018-01-20 11:58 | Discharge Summary ---
HOSPITAL COURSE: Patient is a 62-year-old female who has a past medical history positive for hypertension, history of smoking, came to the hospital with acute left subcortical ischemic stroke with expressive aphasia and mild right upper extremity hemiparesis. Patient was seen by Dr. Pedroza. She came way after the 12-hour window for tPA that seemed to have started at 10 in the morning and she showed up late at night. Patient is going to be going home today. Dr. Pedroza, neurology, has seen the patient. She recommended for her to be discharged with outpatient physical therapy. On the physical exam, the heart shows regular rhythm. Normal S1, S2 sounds. Lungs are clear bilaterally. Abdomen is soft. Upper extremities show no evidence of cyanosis or trauma. Blood pressure 144/84, temperature is 97.1, heart rate 95 per minute, respiratory rate 20 per minute, and oxygen saturation 96%. On the BMP, sodium 140, potassium 3.4, chloride 105, CO2 of 27, BUN 20, creatinine 0.62, and glucose 102. On the CBC, white blood count 9.58, hemoglobin 15.2, hematocrit 44.4, and platelet count 256,000. PT 12.2, INR 0.83, and PTT 26.9. AST 11, ALT 10, total bilirubin 0.4, and alkaline phosphatase 90. FINAL IMPRESSIONS 1. Left subcortical ischemic stroke with expressive aphasia and mild right upper extremity hemiparesis. 2. Uncontrolled diabetes mellitus type 2. 3. Uncontrolled hypertension. 4. History of smoking. PLAN OF TREATMENT: The patient is told to quit smoking of course and continue with 1. Aspirin 325 mg daily. 2. Metformin 1000 mg daily. 3. Lisinopril 20 mg daily. 4. Amlodipine 10 mg daily. 5. Lipitor 80 mg daily. 6. Levemir 10 units at bedtime. Diabetic diet. Patient was instructed how to use the insulin, how to check the sugar a.c. and nightly. She will have to follow with me and Dr. Pedroza in approximately 2 weeks. Equipment ordered was a folding walker with wheels and outpatient physical and occupational therapy. Patient received all the teaching for diabetes and how to check the insulin, how to react to hyper/hypoglycemia. The patient is to contact me should she have any issues or go to the emergency room should the symptoms recur. DEMETRIUS MONAE MD Job#: [id number] CF
== END 2018-01-19 20:30 | disposition home or self-care (01) | DRG 65 ==
LOC: ER 18:33 → ERHOLD 20:59 → ICU 23:09 → MED/SURG2 01-17 17:37 → ICU 01-17 17:38 → MED/SURG2 01-17 17:44
PROVIDERS: ADMIT Internal Medicine; ATTEND Internal Medicine
DX: I63.81 Other cerebral infarction due to occlusion or stenosis of small artery (principal); G81.91 Hemiplegia, unspecified affecting right dominant side; I16.1 Hypertensive emergency; I10 Essential (primary) hypertension; R47.01 Aphasia; E11.65 Type 2 diabetes mellitus with hyperglycemia; Z87.891 Personal history of nicotine dependence; Z79.899 Other long term (current) drug therapy; Z91.14 Patient's other noncompliance with medication regimen; E78.00 Pure hypercholesterolemia, unspecified; E78.1 Pure hyperglyceridemia; E87.6 Hypokalemia
CPT/HCPCS: 36415; 70450; 70498; 70544; 70547; 70551; 71045; 80048; 80053; 80061; 81001; 82550; 82553; 82948; 83036; 83735; 84484; 85025; 85610; 85730; 92523; 93005; 93306; 96366; 96372; 97139; 99285; J1650; J7050; Q9967

== ENCOUNTER 2018-02-05 09:36 | Outpatient (RCR) | payer OTHER ==
[~2018-02-05 09:36] MED LIST: ADVIL200 MG PO
== END 2018-02-06 ==
LOC: PT 09:36
PROVIDERS: ATTEND Internal Medicine
DX: I69.822 Dysarthria following other cerebrovascular disease (principal)
CPT/HCPCS: 92507; 92523; 97110; 97139; 97161; 97165; G8999; G9186

== ENCOUNTER 2018-02-24 09:00 | Outpatient (RCR) | payer OTHER ==
--- NOTE | 2018-02-24 11:38 | NUR ---
Patient Name: Shavonne Schaffer: 1955 Age/Sex: 62/femaleOrdering Physician: Jaret Lugo MD Speech Language and Cognitive Evaluation Patient is a 62 year old female with diagnosis of CVA I63.30. Pt is 62 year old female seen in OP setting for Speech Therapy following hospitalization for CVA. 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 Pedroza, "acute lacunar stroke in the left middle cerebral artery distribution. The patient's neurological examination is significant for moderate dysarthria, right facial droop with mild to moderate right central facial weakness, and subtle pronator drift of the right arm." Right lingual weakness present, reduced ROM and agility, left tongue deviation, right nasolabial weakness Hearing acuity WFL and no c/o pain before or after session. Pts receptive and expressive language WFL. , Pt able to read and write. Cognition: mild short term memory and immediate recall deficits. Pt is 90% intelligible however blended fricatives and sibilants /sh/zh/s/ are imprecise. Speech is slightly slow, pt c/o nasal sounds when she is in conversation with friends and has an inability to raise vocal loudness with shouting at swim meets. Pt can shout at 80-81 dB and not for sustained phrasing. Slow diodochokinetic rate present. Clinical Impressions Pt with mild short term memory deficits and mild dysarthria with 90% intelligibility. Prognosis good Recommendations Speech Therapy to target short term memory, dysarthria and vocal loudness. 2 x week for 3 weeks -must bundle sessions with PT/OT per insurance Location Director Goal(s) Pt to be 100% intelligible with familiar and unfamiliar listeners- goal met Short Term Goal(s) 1. Pt will perform diodochokinetic exercises 25 times in 15 seconds- Pt can perform 24 repetitions in 15 seconds 2. Pt will read fricative, blended fricative, and sibilant words and phrases with 95% accuracy- met 3. Pt will participate in short term memory tasks with 90% accuracy goal met 4. Pt will recall 4 words immediately/5 minute delay/10 minute delay with 85% accuracy- goal met 5. Pt will participate in speech motor exercises with 90% accuracy- goal met 6. Pt will repeat familiar phrases with 85-90dB- goal met 7. Pt will follow dysarthria strategies in sessions and at home with I- goal met Education/demonstration and written handouts provided regarding HEP and how to contact office should pt wish to speak with therapist Galilea Jordan M.S. [facility] [employer] Date of Session: 02/24/18 Speech Language Cognitive Treatment and Discharge X 45 minutes G-code Modifiers: Current: [id number] Goal: [id number] Justification for Modifiers (See Note) Objective Measurements Observation Other ISABELL NOMS Rating for Motor Speech: Level 6 Addendum: 02/24/18 at [address] [place] G-code for Motor Speech [id number]
== END 2018-03-09 ==
LOC: PT 09:00
PROVIDERS: ATTEND Internal Medicine
DX: R47.1 Dysarthria and anarthria (principal); I63.30 Cerebral infarction due to thrombosis of unspecified cerebral artery